=== PATIENT | male | born 1955 | race Caucasian/White ===

== ENCOUNTER 2016-05-30 00:30 | Day surgery (SDC) | payer OTHER ==
[~2016-05-30] VITALS: Ht 185.4 cm; Wt 88.9 kg
[~2016-05-30 00:30] MED LIST: Cosyntropin 0.25 mg/mL Inj IV SCH
[2016-05-30] MEDS ORDERED: Cosyntropin 0.25 mg/mL Inj IV ONE (09:00)
[2016-05-30 09:43] VITALS: BP 123/68; PULSE 58; RESP 16; O2SAT 94
[2016-05-30 10:38] VITALS: BP 133/77; PULSE 60; RESP 16; O2SAT 95
--- NOTE | 2016-05-30 10:44 | NUR ---
acth stimulation test pt tolerated well; no adverse s/s; vss to follow-up with MD deewy care notes provided and reviewed; pt verbalizes understanding and denies questions or concerns
== END 2016-05-30 23:59 | disposition home or self-care (01) ==
LOC: MOCO 00:30
PROVIDERS: ATTEND Family Medicine
DX: E87.1 Hypo-osmolality and hyponatremia (principal); I10 Essential (primary) hypertension; F17.210 Nicotine dependence, cigarettes, uncomplicated
CPT/HCPCS: 36415; 82533; J0834